=== PATIENT | male | born 1970 | race African-American/Black ===

== ENCOUNTER 2017-08-18 22:33 | Emergency (ER) | payer OTHER ==
[~2017-08-18] VITALS: Ht 180.3 cm; Wt 90.3 kg
[~2017-08-18 22:33] MED LIST: KETO10TA2 PO; ORPH100T PO
[2017-08-19] MEDS ORDERED: CIPRO500 MG PO (08:53)
[2017-08-19] MEDS ORDERED: FLAGYL500MG PO (08:53)
[2017-08-19] MEDS ORDERED: ULTRACET PO (08:53)
== END 2017-08-19 08:52 | disposition home or self-care (01) ==
LOC: ER 22:33
DX: K57.92 Diverticulitis of intestine, part unspecified, without perforation or abscess without bleeding (principal); M54.89 Other dorsalgia; L50.8 Other urticaria